=== PATIENT | female | born 1970 | race Caucasian/White ===

== ENCOUNTER 2020-09-27 17:21 | Emergency (ER) | payer MEDICAID ==
[~2020-09-27] VITALS: Ht 167.6 cm; Wt 67.7 kg
[~2020-09-27 17:21] MED LIST: ONDA8TAB13 PO; PER10325T PO
[2020-09-27 17:35] VITALS: BP 154/75
== END 2020-09-27 21:56 | disposition left against medical advice (07) ==
LOC: ER 17:23
DX: M54.2 Cervicalgia (principal); Z53.21 Procedure and treatment not carried out due to patient leaving prior to being seen by health care provider
CPT/HCPCS: 73564

== ENCOUNTER 2021-07-29 21:37 | Emergency (ER) | payer MEDICAID ==
[~2021-07-29] VITALS: Ht 165.1 cm; Wt 72.7 kg
[2021-07-29 21:42] VITALS: BP 131/89
[2021-07-29] MEDS ORDERED: ketorolac tromethamine 15mg/ml inj. IM ONE (22:30)
[2021-07-29] MEDS ORDERED: ondansetron 4mg rapidly disintigrating tab PO ONE ×3 (22:50→22:55)
== END 2021-07-30 00:36 | disposition home or self-care (01) ==
LOC: ER 21:37
DX: S53.401A Unspecified sprain of right elbow, initial encounter (principal); S43.401A Unspecified sprain of right shoulder joint, initial encounter; S40.011A Contusion of right shoulder, initial encounter; S50.01XA Contusion of right elbow, initial encounter; M79.601 Pain in right arm; R20.0 Anesthesia of skin; Z90.49 Acquired absence of other specified parts of digestive tract; Z88.0 Allergy status to penicillin; Z79.899 Other long term (current) drug therapy; W19.XXXA Unspecified fall, initial encounter; Y93.89 Activity, other specified; Y92.89 Other specified places as the place of occurrence of the external cause; Y99.8 Other external cause status
CPT/HCPCS: 73060; 96372; 99284; J1885